=== PATIENT | female | born 1980 | race Caucasian/White ===

== ENCOUNTER 2018-11-19 23:12 | Emergency (ER) | payer OTHER ==
[2018-11-20] MEDS ORDERED: HYDROCODONE/ACETAMINOPHEN 5-325 MG TABLET PO ONE (00:50)
[2018-11-20] MEDS ORDERED: IBUPROFEN 800 MG TABLET PO ONE (00:51)
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
[2018-11-20] MEDS ORDERED: ACETAMINOPHEN 325 MG TABLET PO ONE (07:06)
[2018-11-20] MEDS ORDERED: LIDOCAINE 5% (700 MG) TRANSDERMAL ADH..PATCH TP ONE (07:06)
[2018-11-20] MEDS ORDERED: KETOROLAC TROMETHAMINE 60 MG/2 ML SDV IM ONE (07:06)
[2018-11-20 07:41] VITALS: BP 123/74
== END 2018-11-20 07:42 | disposition home or self-care (01) ==
LOC: ER 23:12
DX: S16.1XXA Strain of muscle, fascia and tendon at neck level, initial encounter (principal); M54.2 Cervicalgia; M54.5 Low back pain; R10.9 Unspecified abdominal pain; V89.2XXA Person injured in unspecified motor-vehicle accident, traffic, initial encounter
CPT/HCPCS: 99284; 81025; 72110; 72070; 72125; L0120

== ENCOUNTER 2020-05-26 18:06 | Emergency (ER) | payer SELFPAY ==
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
[2020-05-26 18:53] LABS: APPEARANCE,URINE SLIGHTLY-CLOUDY; BILIRUBIN,URINE NEGATIVE (NEGATIVE); GLUCOSE, URINE NEGATIVE (NEGATIVE); KETONES,URINE TRACE mg/dL (NEGATIVE); LEUKOCYTE ESTERASE,URINE MODERATE (NEGATIVE); NITRITE,URINE POSITIVE (NEGATIVE); PROTEIN,URINE 30 mg/dL (NEGATIVE); URINE SPECIFIC GRAVITY 1.015
[2020-05-26 18:54] LABS: COLOR,URINE ORANGE
--- NOTE | 2020-05-26 20:33 | RADIOLOGY REPORT (SQ) ---
EXAM DESCRIPTION: XR CHEST 1 VIEW COMPLETED DATE/TME: 05/26/2020 20:00 CLINICAL HISTORY: 39 years, Female, cough x 5 days with sob EXAM DESCRIPTION: CHEST SINGLE VIEW CLINICAL HISTORY: cough x 5 days with sob COMPARISON: None. FINDINGS: Single view of the chest is submitted. Cardiac silhouette is normal. No focal parenchymal or pleural disease. There is no significant pulmonary vascular engorgement. IMPRESSION: No evidence of acute cardiopulmonary disease.
[2020-05-26] MEDS ORDERED: CEPHALEXIN 500 MG CAPSULE PO ONE (23:21)
--- NOTE | 2020-05-26 23:21 | ER Document Report ---
ED General - General Chief Complaint: Congestion Stated Complaint: LOSS OF TASTE/SMELL Time Seen by Provider: 05/26/20 18:10 Primary Care Provider: HAMZAH VALENTINO PA-C [PHYSICIAN PAYMENT PROCESSOR] - Follow up as needed TRAVEL OUTSIDE OF THE [place] IN LAST 30 DAYS: No - HPI Notes: Patient is a 31-year-old female who presents with a nonproductive cough, lack of taste and smell for the past 5 days. Patient reports recent travel last week and she returned from [place]. She reports headache and mild shortness of breath but denies any chest pain, abdominal pain, fever, nausea, vomiting, and diarrhea. She was also concerned she might have a urinary tract infection as she has been experiencing dysuria, urgency, and frequency that began yesterday. She denies any lower back pain or pelvic pain. Patient has not been tested for COVID and denies any known exposure. - Related Data Allergies/Adverse Reactions: No Known Allergies Allergy (Verified 05/26/20 18:12) Past Medical History - General Information source: Patient - Social History Smoking Status: Former Smoker Chew tobacco use (# tins/day): No Frequency of alcohol use: None Drug Abuse: None Family History: None Patient has homicidal ideation: No Review of Systems - Review of Systems Constitutional: No symptoms reported EENT: No symptoms reported Cardiovascular: No symptoms reported Respiratory: See HPI Gastrointestinal: No symptoms reported Genitourinary: See HPI Female Genitourinary: No symptoms reported Musculoskeletal: No symptoms reported Skin: No symptoms reported Hematologic/Lymphatic: No symptoms reported Neurological/Psychological: No symptoms reported Physical Exam - Vital signs Vitals: Temp Pulse Resp BP Pulse Ox 98.2 F 55 L 16 115/73 99 05/26/20 22:18 05/26/20 22:18 05/26/20 22:18 05/26/20 22:18 05/26/20 22:18 - Notes Notes: PHYSICAL EXAMINATION: VITALS: Vitals reviewed and within normal limits. GENERAL: Well-appearing, well-nourished and in no acute distress. HEAD: Atraumatic, normocephalic. EYES: Pupils equal, round, and reactive to light, extraocular movements intact, sclera anicteric, conjunctiva are normal. ENT: Nares patent. Moist mucous membranes. Oropharynx clear without exudates. NECK: Normal range of motion, supple without lymphadenopathy. LUNGS: Breath sounds clear to auscultation bilaterally and equal. No wheezes, rales, or rhonchi. HEART: Regular, rate, and rhythm without murmurs. ABDOMEN: Soft, nontender, normoactive bowel sounds. No guarding, no rebound. No masses appreciated. No CVA tenderness. EXTREMITIES: Normal range of motion, no pitting or edema. No cyanosis. NEUROLOGICAL: No focal neurological deficits. Moves all extremities spontaneously and on command. PSYCH: Normal mood, normal affect. SKIN: Warm, Dry, normal turgor, no rashes or lesions noted. Course - Re-evaluation Re-evalutation: Patient presents with dry cough and loss of taste and smell for the past five days with a hx of recent travel. Vitals are within normal limits. Mild shortness of breath but no chest pain. Lungs are clear to auscultation bilaterally on exam. Chest x-ray is negative. COVID-19 swab is pending. No evidence of respiratory distress. Based on clinical exam and history, I do not suspect an acute pneumonia, meningitis, strep pharyngitis, or an acute encephalitis. Patient also presents with symptoms consistent with an acute cystitis. No history of fever, flank pain, or constitution symptoms to suggest ascending infection at this time. Patient is well in appearance, tolerating oral intake without difficulty. No focal abdominal tenderness to suggest acute appendicitis, biliary pathology, acute pancreatitis, tubo-ovarian abscesses, or pelvic inflammatory disease. UA shows positive leukocyte esterase and nitrites. Patient will be started on antibiotics at this time. A culture has been sent. They will be discharged with return precautions and follow-up recommendations. Patient understands and is in agreement with the plan. - Vital Signs Vital signs: Temp Pulse Resp BP Pulse Ox 98.2 F 81 18 149/92 H 96 05/26/20 22:18 05/26/20 23:25 05/26/20 23:25 05/26/20 23:25 05/26/20 23:25 - Laboratory Results Laboratory Results Interpreted: 05/26/20 18:32 Urine Protein 30 H Urine Ketones TRACE H Urine Blood SMALL H Urine Nitrite POSITIVE H Urine Urobilinogen 4.0 H Ur Leukocyte Esterase MODERATE H Urine Ascorbic Acid 40 H Critical Laboratory Results Reviewed: No Critical Results - Radiology Results Critical Radiology Results Reviewed: No Critical Results Discharge - Discharge Clinical Impression: Suspected COVID-19 virus infection Urinary tract infection Qualifiers: Urinary tract infection type: acute cystitis Hematuria presence: with hematuria Qualified Code(s): N30.01 - Acute cystitis with hematuria Condition: Stable Disposition: HOME, SELF-CARE Instructions: COVID-19 Guidance for Persons Under Investigation Additional Instructions: Your urine shows findings consistent with a urinary tract infection. Please take all the antibiotics as directed even if your symptoms have improved. Please follow-up with your primary care physician as needed. Return to emergency room if you develop fever >101F, persistent vomiting, become lethargic, have severe pain in your sides, or any other symptoms that are concerning to you. Prescriptions: Cephalexin Monohydrate [Keflex 500 mg Capsule] 500 mg PO BID 7 Days #14 capsule Referrals: HAMZAH VALENTINO PA-C [PHYSICIAN PAYMENT PROCESSOR] - Follow up as needed
[2020-05-26 23:30] VITALS: BP 149/92
== END 2020-05-26 23:30 | disposition home or self-care (01) ==
LOC: ER 18:06
DX: N30.01 Acute cystitis with hematuria (principal); U07.1 COVID-19; R68.89 Other general symptoms and signs; R05 Cough; R43.8 Other disturbances of smell and taste
CPT/HCPCS: 99284; 87086; 87635; 81025; 81001; 71045; C9803